=== PATIENT | male | born 1995 | race Caucasian/White ===

== ENCOUNTER 2022-01-12 22:11 | Emergency (ER) | payer BC, OTHER ==
[2022-01-12 22:53] LABS: BLOOD UREA NITROGEN,BUN 17 mg/dL (7.0-18.0); CARBON DIOXIDE,CO2 24.5 mmol/L (21.0-32.0); CHLORIDE,CL 105 mmol/L (98-107); GLUCOSE RANDOM 91 mg/dL (74-106); POTASSIUM,K 3.7 mmol/L (3.5-5.1); SODIUM,NA 143 mmol/L (136-148)
[2022-01-12] MEDS ORDERED: Acetaminophen 500 MG Tab PO ONE (23:13)
== END 2022-01-12 23:56 | disposition home or self-care (01) ==
LOC: MW.ED 22:11
DX: S22.32XA Fracture of one rib, left side, initial encounter for closed fracture (principal); S09.90XA Unspecified injury of head, initial encounter; V49.50XA Passenger injured in collision with unspecified motor vehicles in traffic accident, initial encounter; Y92.410 Unspecified street and highway as the place of occurrence of the external cause
CPT/HCPCS: 36415; 70450; 71260; 72125; 80053; 80305; 80307; 81001; 84484; 85025; 85610; 93005; 99285; A9270

== ENCOUNTER 2023-07-26 16:05 | Emergency (ER) | payer BC ==
[2023-07-26] MEDS ORDERED: Sodium Chloride 0.9% 1,000 ML IV STA ×2 (17:15→18:18)
[2023-07-26] MEDS ORDERED: Sodium Chloride 0.9% 10 ML Syringe FLUSH PRN (17:15)
[2023-07-26] MEDS ORDERED: Ketorolac 30 MG/ML SDV IVPUSH STA (17:15)
[2023-07-26] MEDS ORDERED: Sodium Chloride 0.9% 2.5 ML Syringe FLUSH PRN (17:15)
[2023-07-26 17:34] LABS: BASOPHILS ABSOLUTE AUTO 0.05 K/uL (0.00-0.20); BASOPHILS PERCENT AUTO 0.7 % (0.0-1.0); EOSINOPHILS ABSOLUTE AUTO 0.04 K/uL (0.00-0.45); EOSINOPHILS PERCENT AUTO 0.6 % (0.0-6.0); HEMATOCRIT 38.3 % (42.0-52.0); HEMOGLOBIN 13.1 g/dL (14.0-18.0); IMMATURE GRAN ABSOLUTE AUTO 0.01 K/uL (0.00-0.05); IMMATURE GRAN PERCENT AUTO 0.1 % (0.0-0.4); LYMPHOCYTES ABSOLUTE AUTO 1.29 K/uL (1.00-4.80); LYMPHOCYTES PERCENT AUTO 18.9 % (24.0-44.0); MEAN CORPUSCULAR HEMOGLOBIN 30.1 pg (28.0-32.0); MEAN CORPUSCULAR HGB CONC 34.2 g/dL (32.0-36.0); MEAN PLATELET VOLUME 10.3 fL (9.4-12.4); MONOCYTES ABSOLUTE AUTO 0.59 K/uL (0.00-0.80); MONOCYTES PERCENT AUTO 8.7 % (0.0-8.0); NEUTROPHILS ABSOLUTE AUTO 4.84 K/uL (1.80-7.70); PLATELET COUNT,PLT 253 K/uL (150-400); RED BLOOD CELL COUNT 4.35 M/uL (4.52-5.90); WHITE BLOOD CELL COUNT,WBC 6.82 K/uL (3.9-11.3)
[2023-07-26 17:56] LABS: A/G RATIO 1.4 (0.9-1.6); ALBUMIN 4.5 g/dL (3.4-5.0); BILIRUBIN TOTAL 0.3 mg/dL (0.2-1.0); CALCIUM 8.9 mg/dL (8.5-10.1); CARBON DIOXIDE,CO2 24.8 mmol/L (21.0-32.0); CREATININE 1.4 mg/dL (0.8-1.3); EST CRCL DRUG DOSING (CG) 68.31 mL/min; POTASSIUM,K 3.4 mmol/L (3.5-5.1); PROTEIN TOTAL,TP 7.8 g/dL (6.4-8.2)
[2023-07-26 18:41] LABS: BILIRUBIN,URINE NEGATIVE (NEGATIVE); COLOR,URINE YELLOW; GLUCOSE,URINE NEGATIVE (NEGATIVE); KETONES,URINE TRACE mg/dL (NEGATIVE); LEUKOCYTE ESTERASE,URINE TRACE (NEGATIVE); NITRITE,URINE NEGATIVE (NEGATIVE); OCCULT BLOOD,URINE NEGATIVE (NEGATIVE); PROTEIN,URINE NEGATIVE (NEGATIVE); UROBILINOGEN,URINE 0.2 EU/dL (<2.0)
[2023-07-26 18:49] LABS: APPEARANCE,URINE SLT CLOUDY
[2023-07-26 18:54] LABS: AMORPHOUS SEDIMENT,URINE FEW (NEGATIVE); BACTERIA,URINE FEW (NEGATIVE); EPITHELIAL CELLS,URINE RARE (NONE-FEW); RBC,URINE 0-2 (0-2/HPF); WBC,URINE 0-2 (0-5/HPF)
[2023-07-26] MEDS ORDERED: Iopamidol 755 MG/ML 500 ML Multipack Bottle IVPUSH STA (19:32)
[2023-07-26] MEDS ORDERED: Lidocaine 4% 1 each Patch TOP STA (19:39)
[2023-07-26 20:11] LABS: C. TRACHOMATIS BY PCR NOT DETECTED; N. GONORRHOEAE BY PCR NOT DETECTED
== END 2023-07-26 21:31 | disposition home or self-care (01) ==
LOC: MW.ED 16:05
DX: R10.32 Left lower quadrant pain (principal); F17.210 Nicotine dependence, cigarettes, uncomplicated; Z79.899 Other long term (current) drug therapy
CPT/HCPCS: 36415; 74177; 80053; 81001; 83690; 85025; 87086; 87491; 87591; 96361; 96374; 99284; A9270; J1885; J3490; J7030; Q9967

== ENCOUNTER 2023-08-21 11:24 | Day surgery (SDC) | payer BC ==
[2023-08-21] MEDS: Lactated Ringers 1,000 ML IV SCH (12:15)
[2023-08-21] MEDS ORDERED: Midazolam 1 MG/ML 2 ML SDV ONE (13:02)
[2023-08-21] MEDS ORDERED: propofoL 50 ML ONE (13:05)
[2023-08-21] MEDS ORDERED: Lactated Ringers 1,000 ML IV SCH (14:00)
== END 2023-08-21 14:39 | disposition home or self-care (01) ==
LOC: MW.SDS 11:24
PROVIDERS: ATTEND Surgery
DX: K20.90 Esophagitis, unspecified without bleeding (principal); K29.50 Unspecified chronic gastritis without bleeding; R63.4 Abnormal weight loss; Z68.20 Body mass index [BMI] 20.0-20.9, adult; Z87.891 Personal history of nicotine dependence; Z98.890 Other specified postprocedural states; Z79.899 Other long term (current) drug therapy
CPT/HCPCS: 43239; 45380; J2250; J2704; J7120; 00813

== ENCOUNTER 2024-05-25 09:33 | Emergency (ER) | payer BC ==
[2024-05-25] MEDS: Lidocaine 2% Viscous Solution 15 ML UD PO ONE (10:31)
[2024-05-25] MEDS: Benzocaine 20% Topical Spray UD MUCMEM ONE (10:31)
== END 2024-05-25 10:32 | disposition home or self-care (01) ==
LOC: MW.ED 09:33
DX: K04.7 Periapical abscess without sinus (principal); F17.210 Nicotine dependence, cigarettes, uncomplicated; Z79.899 Other long term (current) drug therapy; Z75.8 Other problems related to medical facilities and other health care
CPT/HCPCS: 99283; A9270

== ENCOUNTER 2024-10-11 11:14 | Emergency (ER) | payer BC ==
[2024-10-11] MEDS: Benzocaine 20% Topical Spray UD MUCMEM ONE (11:57)
[2024-10-11] MEDS: Lidocaine 2% Viscous Solution 15 ML UD PO ONE (11:57)
== END 2024-10-11 11:59 | disposition home or self-care (01) ==
LOC: MW.ED 11:14
DX: K04.7 Periapical abscess without sinus (principal); Z79.899 Other long term (current) drug therapy; Z75.8 Other problems related to medical facilities and other health care
CPT/HCPCS: 99282; A9270

== ENCOUNTER 2025-01-30 02:01 | Emergency (ER) | payer BC | END 2025-01-30 03:27 | disposition home or self-care (01) | LOC: MW.ED 02:01 | DX: S52.572A Other intraarticular fracture of lower end of left radius, initial encounter for closed fracture (principal); S52.615A Nondisplaced fracture of left ulna styloid process, initial encounter for closed fracture; J45.909 Unspecified asthma, uncomplicated; Z79.899 Other long term (current) drug therapy; Y04.0XXA Assault by unarmed brawl or fight, initial encounter | CPT/HCPCS: 29125; 73090-26-LT; 73090-LT; 73120-26-LT; 73120-LT; 99283-25 ==